=== PATIENT | female | born 1980 | race Caucasian/White ===

== ENCOUNTER 2016-10-16 07:35 | Day surgery (SDC) | payer MEDICAID ==
[~2016-10-16 07:35] MED LIST: Lactated Ringers 1,000 ML IV SCH; fentaNYL 100 MCG/2 ML SDV ONE
--- NOTE | 2016-10-16 08:24 | PCM.PREANE ---
Preanesthetic Assessment - Procedure Proposed Procedure: Placement of cervical cerclage - Anesthesia/Transfusion/Family Hx Anesthesia History: Prior Anesthesia Without Reaction (cervical cerclage under saddle block 2 yr ago) Other Type of Anesthesia Reaction Comment: Denies any known problem in past Family History of Anesthesia Reaction: No Transfusion History: No Prior Transfusion(s) Intubation History: Unknown - Review of Systems General: No Symptoms, Other (14 week ) Pulmonary: No Symptoms Cardiovascular: No Symptoms Gastrointestinal: No symptoms Neurological: No Symptoms Other: Reports: None - Physical Assessment NPO Status Date: 10/15/16 NPO Status Time: 23:00 O2 Sat by Pulse Oximetry: 97 Respiratory Rate: 16 Vital Signs: Last Vital Signs Temp 98.1 F 10/16/16 08:01 Pulse 67 10/16/16 08:01 Resp 16 10/16/16 08:01 BP 143/81 H 10/16/16 08:01 Pulse Ox 97 10/16/16 08:01 Height: 5 ft 5 in Weight: 265 lb ASA Class: 2 Mental Status: Alert & Oriented x3 Airway Class: Mallampati = 1 Dentition: Reports: Normal Dentition Thyro-Mental Finger Breadths: 4 Mouth Opening Finger Breadths: 3 ROM/Head Extension: Full Lungs: Clear to auscultation, Normal respiratory effort Cardiovascular: Regular Rate, Regular Rhythm, No Murmurs - Allergies Allergies/Adverse Reactions: Allergies Allergy/AdvReac Type Severity Reaction Status Date / Time Penicillins Allergy Hives Verified 08/17/14 16:29 - Blood Blood Available: No Product(s) Available: None - Anesthesia Plan Pre-Op Medication Ordered: None - Acknowledgements Anesthesia Type Planned: Spinal (saddle block) Pt an Appropriate Candidate for the Planned Anesthesia: Yes Alternatives and Risks of Anesthesia Discussed w Pt/Guardian: Yes Pt/Guardian Understands and Agrees with Anesthesia Plan: Yes PreAnesthesia Questionnaire - Past Health History Medical/Surgical History: Denies Medical/Surgical History 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: Reports: , Spontaneous Other OB/BYN History: 3 miscarriages Endocrine/Metabolic History: Reports: Obesity/BMI 30+ - Past Surgical History Head Surgeries/Procedures: Reports: None Female Surgical History: Reports: D&C Other Female Surgeries/Procedures: cervical cerclage in 2014 - SUBSTANCE USE Smoking Status *Q: Former Smoker Second Hand Smoke Exposure: No Days Per Week of Alcohol Use: 0 Number of Drinks Per Day: 0 Total Drinks Per Week: 0 Recreational Drug Use History: Yes - HOME MEDS Home Medications: Home Meds Acetaminophen [Tylenol Extra Strength] 2 tab PO ASDIRECTED PRN 10/11/16 [History ] - CURRENT (IN HOUSE) MEDS Current Meds: Current Medications Lactated Ringer's (Ringers, Lactated) 1,000 mls @ 125 mls/hr IV ASDIRECTED [facility] Last Admin: 10/16/16 08:02 Dose: 125 mls/hr Discontinued Medications Fentanyl (Sublimaze) Confirm Administered Dose 100 mcg .ROUTE .STK-MED ONE Stop: 10/16/16 07:32 Preanesthetic Assessment - ANESTHESIA/TRANSFUSION/FAMILY HX Anesthesia/Transfusion History: Prior Anesthesia Other Type of Anesthesia Reaction Comment: Denies any known problem in past Family History of Anesthesia Reaction: No Intubation History: Unknown - PHYSICAL ASSESSMENT O2 Sat by Pulse Oximetry: 97 RR: 16 Vital Signs: Last Vital Signs Temp 98.1 F 10/16/16 08:01 Pulse 67 10/16/16 08:01 Resp 16 10/16/16 08:01 BP 143/81 H 10/16/16 08:01 Pulse Ox 97 10/16/16 08:01 Height: 5 ft 5 in Weight: 265 lb NPO Status Date: 10/15/16 NPO Status Time: 23:00 - ALLERGIES Allergies/Adverse Reactions: Allergies Allergy/AdvReac Type Severity Reaction Status Date / Time Penicillins Allergy Hives Verified 08/17/14 16:29
[2016-10-16] MEDS ORDERED: Ketorolac 30 MG/ML SDV ONE (09:27)
--- NOTE | 2016-10-16 10:15 | PCM.OPNOTE ---
- General Post-Op/Procedure Note Date of Surgery/Procedure: 10/16/16 Operative Procedure(s): Prophylactic cervical cerclage, Marques's Findings: FHR 140's , preop. Long thick cervix, closed Pre Op Diagnosis: 1)14.1 weeks 2)History of Incompetent cervix Post-Op Diagnosis: Same Anesthesia Technique: Spinal Primary Surgeon: Luba Birch Pathology: None Fluid Replacement, Intraop: 1,500 EBL in mLs: 5 Complications: None Condition: Good
--- NOTE | 2016-10-16 11:24 | PCM.POSTAN ---
POST ANESTHESIA ASSESSMENT - MENTAL STATUS Mental Status: alert, oriented - RESPIRATORY Respiratory Status: respiratory rate WNL, airway patent - CARDIOVASCULAR CV Status: pulse rate WNL, blood pressure stable - GASTROINTESTINAL GI Status: no symptoms - POST OP HYDRATION Hydration Status: adequate & stable
--- NOTE | 2016-10-16 11:25 | PCM48HPAN ---
Post Anesthesia Note - EVALUATION WITHIN 48HRS OF ANESTHETIC Vital Signs in Normal Range: Yes Patient Participated in Evaluation: Yes Respiratory Function Stable: Yes Airway Patent: Yes Cardiovascular Function Stable: Yes Hydration Status Stable: Yes Pain Control Satisfactory: Yes Nausea and Vomiting Control Satisfactory: Yes Mental Status Recovered: Yes
[2016-10-16 12:36] VITALS: BP 114/76
--- NOTE | 2016-10-17 01:49 | OR ---
SURGEON: Luba Birch MD DATE OF PROCEDURE: 10/16/2016 PREOPERATIVE DIAGNOSES: 1. Intrauterine at 14 weeks and 1 day gestation. 2. History of cervical insufficiency. POSTOPERATIVE DIAGNOSES: 1. Intrauterine at 14 weeks and 1 day gestation. 2. History of cervical insufficiency. PROCEDURE: Mohan Cervical Cerclage. ANESTHESIA: Spinal. ESTIMATED BLOOD LOSS: 10 mL. COMPLICATIONS: None. DISPOSITION: Stable to recovery room. OPERATIVE FINDING: Cervix was long, thick, and closed. heart tracing 130 beats per minute preop. Postop heart tracing was 130s to 140 beats per minute BRIEF HISTORY: Margaret is G5, P0-2-2-2, who with a history of cervical insufficiency after having had 2 deliveries, the 1st one at 32 weeks and her last delivery in 2014, was at 29 weeks gestation, despite an ultrasound indicated emergency cerclage placed at 22 weeks gestation. She is currently 14 weeks and is a candidate for history indicated prophylactic cerclage placement. DESCRIPTION OF PROCEDURE: After satisfactory spinal anesthesia was established, the patient was placed in dorsal lithotomy position, prepped and draped in the usual sterile fashion for vaginal surgery. The bladder had been emptied with a straight catheter. Examination under anesthesia was performed with aforementioned findings. The patient was then placed in Trendelenburg position and a weighted speculum was placed in the vagina. Lateral wall vaginal Breisky retractors were used to visualize the cervix. Ring forceps was applied to the anterior and the posterior cervical lips and traction was applied downwards towards the vaginal introitus. Using #1 Prolene suture with a CT-1 needle, the Ist cerclage stitch was placed starting at 12 o'clock position at the junction of the cervix and the vagina. The Purse-string suture was placed around the cervix taking bites of the stroma. The suture was held with a hemostat. The second Purse-string suture was then placed a few millimeter above the first one in similar fashion and was held with the hemostat. This Ist suture was then tied down securely. Followed by the 2nd suture which was also tied down. Each suture was cut approximately 2-3 cm from the knots. All instruments were removed from the vagina. There was no rupture of membrane or any other complications noted during the procedure. The patient tolerated the procedure well and was taken to the recovery room in stable condition. ALBEROT / VIRIDIANA /[id number] BONNY
== END 2016-10-16 12:20 | disposition home or self-care (01) ==
LOC: MW.SDS 07:35
PROVIDERS: ATTEND Obstetrics & Gynecology
PROC: 0UVC7ZZ Restriction of Cervix, Via Natural or Artificial Opening (ICD-10-PCS; principal; 2016-10-16)
DX: N88.3 Incompetence of cervix uteri (principal); O09.291 Supervision of pregnancy with other poor reproductive or obstetric history, first trimester; F32.9 Major depressive disorder, single episode, unspecified; Z87.891 Personal history of nicotine dependence; Z98.890 Other specified postprocedural states; Z79.899 Other long term (current) drug therapy; Z88.0 Allergy status to penicillin
CPT/HCPCS: 36415; 59320; 85027; J1885; J3010; J7120; 00948

== ENCOUNTER 2017-03-26 10:12 | Inpatient (IN) | payer MEDICAID ==
[2017-03-26] MEDS: Lactated Ringers 1,000 ML IV SCH ×2 (11:01→12:22)
[2017-03-26] MEDS ORDERED: Lidocaine 1% 50 ML MDV ONE (11:11)
[2017-03-26] MEDS ORDERED: Lidocaine 1% 50 ML MDV INJECT PRN (11:28)
[2017-03-26] MEDS ORDERED: Nalbuphine 10 MG/1 ML Vial IVPUSH PRN (11:28)
[2017-03-26] MEDS ORDERED: Carboprost Tromethamine 250 MCG/1 ML Amp IM PRN (11:28)
[2017-03-26] MEDS ORDERED: Sodium Chloride 0.9% 10 ML Syringe FLUSH PRN (11:28)
[2017-03-26] MEDS ORDERED: Methylergonovine 0.2 MG/1 ML Amp IM PRN (11:28)
[2017-03-26] MEDS ORDERED: Butorphanol 1 MG/ML SDV IVPUSH PRN (11:28)
[2017-03-26] MEDS ORDERED: Water For Irrigation,Sterile 1,000 ML Container IRR PRN (11:28)
[2017-03-26] MEDS ORDERED: Misoprostol 200 MCG Tab PO PRN (11:28)
[2017-03-26] MEDS ORDERED: Sodium Chloride 0.9% 2.5 ML Syringe FLUSH PRN (11:28)
[2017-03-26] MEDS ORDERED: Oxytocin/Lactated Ringers 30 UNIT/500 ML BAG IV SCH (11:30)
[2017-03-26] MEDS ORDERED: Ropivacaine HCl/PF 0 ML ONE (11:30)
[2017-03-26] MEDS ORDERED: fentaNYL 100 MCG/2 ML SDV ONE ×2 (11:30→11:42)
[2017-03-26] MEDS ORDERED: Oxytocin/0.9 % Sodium Chloride 30 UNIT/500 ML BAG IV SCH (12:00)
[2017-03-26] MEDS ORDERED: oxyCODONE 5 MG Tab ONE (12:12)
[2017-03-26] MEDS ORDERED: Ibuprofen 800 MG Tab ONE (12:12)
[2017-03-26] MEDS ORDERED: Acetaminophen 500 MG Tab PO PRN (12:32)
[2017-03-26] MEDS ORDERED: Measles, Mumps & Rubella Vaccine 0.5 ML SDV SUBCUT ONE (12:32)
[2017-03-26] MEDS ORDERED: Ibuprofen 400 MG Tab PO PRN (12:32)
[2017-03-26] MEDS ORDERED: Benzocaine/Menthol 20%-0.5% Spray 78 GM Cannister TOP PRN (12:32)
[2017-03-26] MEDS ORDERED: Lanolin 100% Cream 7 GM Tube TOP PRN (12:32)
[2017-03-26] MEDS ORDERED: Bisacodyl 10 MG Supp RECTAL PRN (12:32)
[2017-03-26] MEDS ORDERED: Witch Hazel Medicated Pads 40/Jar TOP PRN (12:32)
[2017-03-26] MEDS ORDERED: Ibuprofen 800 MG Tab PO PRN (12:32)
[2017-03-26] MEDS: Acetaminophen 500 MG Tab PO PRN (13:42)
[2017-03-26] MEDS: oxyCODONE 5 MG Tab PO PRN ×2 (14:39→17:16)
[2017-03-26] MEDS: Docusate Sodium 100 MG Cap PO PRN (17:16)
[2017-03-27] MEDS: oxyCODONE 5 MG Tab PO PRN ×3 (00:13→15:34)
[2017-03-27] MEDS: Acetaminophen 500 MG Tab PO PRN ×3 (00:14→15:34)
--- NOTE | 2017-03-27 07:52 | PCM.PNPP ---
- General Info Date of Service: 03/27/17 Functional Status: Reports: Pain Controlled, Tolerating Diet, Ambulating, Urinating - Review of Systems General: Denies: Fever, Weakness, Chills HEENT: Denies: Headaches Pulmonary: Denies: Shortness of Breath, Cough Cardiovascular: Denies: Chest Pain, Palpitations, Dyspnea on Exertion Gastrointestinal: Denies: Abdominal Pain Genitourinary: Denies: Dysuria, Incontinence Psychiatric: Denies: Mood Lability, Anxiety - General Info Date of Service: 03/27/17 - Patient Data Vital Signs - Most Recent: Last Vital Signs Temp 36.5 C 03/27/17 06:30 Pulse 75 03/27/17 06:30 Resp 16 03/27/17 06:30 BP 130/63 03/27/17 06:30 Pulse Ox 96 03/27/17 06:30 Weight - Most Recent: 310 lb Lab Results - Last 24 Hours: Laboratory Results - last 24 hr 03/26/17 03/26/17 03/27/17 Range/Units 10:59 10:59 04:30 WBC 10.23 (4.0-11.0) K/uL RBC 4.16 L (4.30-5.90) M/uL Hgb 12.3 11.1 L (12.0-16.0) g/dL Hct 37.2 34.2 L (36.0-46.0) % MCV 89.4 (80.0-98.0) fL MCH 29.6 (27.0-32.0) pg MCHC 33.1 (31.0-37.0) g/dL RDW Std Deviation 43.3 (28.0-62.0) fl RDW Coeff of Salas 13 (11.0-15.0) % Plt Count 238 (150-400) K/uL MPV 11.30 (7.40-12.00) fL Nucleated RBC % 0.0 /100WBC Nucleated RBCs # 0 K/uL Blood Type O POSITIVE Antibody Screen NEGATIVE Med Orders - Current: Current Medications Acetaminophen (Tylenol Extra Strength) 500 mg PO Q4H PRN PRN Reason: Pain Acetaminophen (Tylenol Extra Strength) 1,000 mg PO Q4H PRN PRN Reason: Pain Last Admin: 03/27/17 00:14 Dose: 1,000 mg Benzocaine/Menthol (Dermoplast Pain Relief 20%-0.5% [place]) 78 gm TOP ASDIRECTED PRN PRN Reason: Perineal Comfort Measure Last Admin: 03/26/17 17:16 Dose: 1 can Bisacodyl (Dulcolax) 10 mg RECTAL .ONCE PRN PRN Reason: Constipation Docusate Sodium (Colace) 100 mg PO BID PRN PRN Reason: Constipation Last Admin: 03/26/17 17:16 Dose: 100 mg Emollient Ointment (Lansinoh Hpa) 0 gm TOP ASDIRECTED PRN PRN Reason: Sore Nipples Ibuprofen (Motrin) 400 mg PO Q4H PRN PRN Reason: Pain Ibuprofen (Motrin) 800 mg PO Q6H PRN PRN Reason: Pain Last Admin: 03/26/17 19:06 Dose: 800 mg Oxycodone HCl (Oxycodone) 5 mg PO Q2H PRN PRN Reason: Pain Last Admin: 03/27/17 00:13 Dose: 5 mg Witch Gila (Tucks) 1 pad TOP ASDIRECTED PRN PRN Reason: comfort care Last Admin: 03/26/17 17:16 Dose: 1 tub Discontinued Medications Butorphanol Tartrate (Stadol) 1 mg IVPUSH Q1H PRN PRN Reason: Pain Carboprost Tromethamine (Hemabate Ds) 250 mcg IM ASDIRECTED PRN PRN Reason: Post Hemorrhage Fentanyl (Sublimaze) Confirm Administered Dose 100 mcg .ROUTE .STK-MED ONE Stop: 03/26/17 11:31 Fentanyl (Sublimaze) Confirm Administered Dose 100 mcg .ROUTE .STK-MED ONE Stop: 03/26/17 11:43 Lactated Ringer's (Ringers, Lactated) 1,000 mls @ 150 mls/hr IV ASDIRECTED LINDSAY Last Admin: 03/26/17 12:22 Dose: 999 mls/hr Oxytocin/Lactated Ringer's (Pitocin In Lr 30 Units/500 Ml) 30 unit in 500 mls @ 999 mls/hr IV TITRATE LINDSAY PRN Reason: 999 MUNITS/MIN Stop: 03/26/17 12:01 Ropivacaine (Naropin 0.2%) Confirm Administered Dose 0 mls @ as directed .ROUTE .STK-MED ONE Stop: 03/26/17 11:31 Oxytocin/Sodium Chloride (Oxytocin 30 Unit/500 Ml-Ns) 30 unit in 500 mls @ 999 mls/hr IV TITRATE LINDSAY PRN Reason: 999 MUNITS/MIN Last Admin: 03/26/17 11:49 Dose: 999 munits/min, 999 mls/hr Ibuprofen (Motrin) Confirm Administered Dose 800 mg .ROUTE .STK-MED ONE Stop: 03/26/17 12:13 Last Admin: 03/26/17 12:18 Dose: 800 mg Lidocaine HCl (Xylocaine 1%) Confirm Administered Dose 50 ml .ROUTE .STK-MED ONE Stop: 03/26/17 11:12 Lidocaine HCl (Xylocaine 1%) 50 ml INJECT .ONCE PRN PRN Reason: Laceration repair Measles/Mumps/Rubella Vaccine Live (M-M-R Ii Vaccine) 0.5 ml SUBCUT .ONCE ONE Stop: 03/26/17 12:33 Methylergonovine Maleate (Methergine) 0.2 mg IM ASDIRECTED PRN PRN Reason: Post Hemorrhage Misoprostol (Cytotec) 200 mcg PO .ONCE PRN PRN Reason: Post Hemorrhage Nalbuphine HCl (Nubain) 10 mg IVPUSH Q1H PRN PRN Reason: Pain (severe 7-10) Oxycodone HCl (Oxycodone) Confirm Administered Dose 5 mg .ROUTE .STK-MED ONE Stop: 03/26/17 12:13 Last Admin: 03/26/17 12:18 Dose: 5 mg Sodium Chloride (Saline Flush) 10 ml FLUSH ASDIRECTED PRN PRN Reason: Keep Vein Open Sodium Chloride (Saline Flush) 2.5 ml FLUSH ASDIRECTED PRN PRN Reason: Keep Vein Open Sterile Water (Sterile Water For Irrigation) 1,000 ml IRR ASDIRECTED PRN PRN Reason: delivery - Interaction Infant Disposition, : to Nursery Infant Interaction: Not Applicable Infant Feeding: Attempted ; Nursed Fair/Poor, Bottle Fed , Encouraged to Breastfeed (Patient will continue to try with breast feeding) Support Person: Significant Other - Recovery Exam Fundal Tone: Firm Fundal Level: 1 Fingerbreadths Below Umbilicus Fundal Placement: Midline Lochia Amount: Scant Lochia Color: Rubra/Red Perineum Description: Intact, Minimal Bruising/Swelling Episiotomy/Laceration: None Bladder Status: Voiding Urinary Elimination: Voided - Exam General: Alert, Oriented HEENT: Pupils Equal Lungs: Clear to Auscultation, Normal Respiratory Effort Cardiovascular: Regular Rate, Regular Rhythm GI/Abdominal Exam: Non-Tender Extremities: Non-Tender, Pedal Edema Psy/Mental Status: Alert, Normal Affect, Normal Mood - Problem List & Annotations (1) Vaginal delivery SNOMED Code(s): 063769024 Code(s): O80 - ENCOUNTER FOR FULL-TERM UNCOMPLICATED DELIVERY Status: Acute Current Visit: Yes - Problem List Review Problem List Initiated/Reviewed/Updated: Yes - My Orders Last 24 Hours: My Active Orders 03/26/17 10:28 Non Stress Test [RC] PER UNIT ROUTINE Up ad Pam [RC] ASDIRECTED Vaginal Exam [RC] Click to Edit Vital Signs [RC] PER UNIT ROUTINE 03/26/17 11:28 Heart Tones [RC] CONTINUOUS Non Stress Test [RC] PER UNIT ROUTINE May Shower [RC] ASDIRECTED Notify Provider [RC] PRN Up ad Pam [RC] ASDIRECTED Vaginal Exam [RC] PRN Vital Signs [RC] PER UNIT ROUTINE 03/26/17 12:32 Patient Status [ADT] Routine May Shower [RC] ASDIRECTED Up ad Pam [RC] ASDIRECTED Vital Signs [RC] PER UNIT ROUTINE Acetaminophen [Tylenol Extra Strength] 1,000 mg PO Q4H PRN Acetaminophen [Tylenol Extra Strength] 500 mg PO Q4H PRN Benzocaine/Menthol [Dermoplast Pain Relief 20%-0.5% [place]] 78 gm TOP ASDIRECTED PRN Bisacodyl [Dulcolax] 10 mg RECTAL .ONCE PRN Docusate Sodium [Colace] 100 mg PO BID PRN Ibuprofen [Motrin] 400 mg PO Q4H PRN Ibuprofen [Motrin] 800 mg PO Q6H PRN Lanolin [Lansinoh HPA] See Dose Instructions TOP ASDIRECTED PRN Witch Gila [Tucks] 1 pad TOP ASDIRECTED PRN oxyCODONE 5 mg PO Q2H PRN Assess Lochia [WOMSER] Per Unit Routine Assess Uterine Involution [WOMSER] Per Unit Routine Breast Pump [WOMSER] Per Unit Routine Peripheral IV Discontinue [OM.PC] Routine Resuscitation Status Routine 03/26/17 12:33 Perineal Care [OM.PC] Per Unit Routine 03/26/17 Dinner Regular Diet [DIET] - Assessment Assessment:: PPD#1 s/p uncomplicated at 37 weeks Stable and afebrile - Plan Plan:: Discharge instructions reviewed Nothing in the vagina for 6 weeks Bleeding and infection precautions reviewed Continue PNV Follow up in 6 weeks in the clinics
[2017-03-27] MEDS: Docusate Sodium 100 MG Cap PO PRN (09:03)
--- NOTE | 2017-03-27 10:39 | OR ---
SURGEON: Luba Birch MD DATE OF PROCEDURE: 03/26/2017 PREOPERATIVE DIAGNOSES: 1. Term at 37 weeks and 2 days. 2. Spontaneous labor. POSTOPERATIVE DIAGNOSES: 1. Term at 37 weeks and 2 days. 2. Precipitate labor. 3. Delivered. PROCEDURE: Spontaneous vaginal delivery. ANESTHESIA: None. ESTIMATED BLOOD LOSS: 100 mL. COMPLICATIONS: None. DISPOSITION: Mother and baby stable in labor and delivery room, bonding. FINDINGS: Female , weight pending at dictation, score 6 and 8 at 1 and 5 minutes respectively. Grossly normal placenta with three-vessel cord. Intact perineum. BRIEF HISTORY: Margaret is 36-year-old, G6, P0-2-3-2, who presented at 37 weeks and 2 days gestation to Labor and delivery, 24 hours after she had an uneventful removal of prophylactic cerclage in the office, complaining of regular contractions since about an hour prior to presentation, associated with increasing vaginal spotting and possible leakage of small amount of fluid. She reported active fetus. On presentation to labor and delivery at approximately 1023 hours, she was placed on the monitor , category 1 strip and on VE she was 3 to 4 cm dilated, 80% effaced, and station -1. Justus every 1 to 3 minutes. She was admitted with routine intrapartum labs drawn. The patient progressed rather rapidly, and within 5 minutes of presentation, she had a spontaneous rupture of membranes with clear amniotic fluid noted. She was re-examined then and was already 6 to 7 cm dilated. She then progressed to full dilatation within 1 hour and 15 mins of admission and commenced active pushing. She was set up for delivery in modified dorsolithotomy position. The heart tracing remained category 1. PROCEDURE DETAILS: She had a spontaneous vaginal delivery of a live female in direct occipital anterior position, no nuchal cord, copious amount of clear amniotic fluid at delivery. Anterior and the posterior shoulders and the rest of the baby were delivered without difficulty. Infant was delivered onto the maternal abdomen. Delayed cord clamping was performed, and the cord was subsequently cut by the father of the baby. With delivery of the infant, oxytocin infusion was commenced for active management of third stage of labor. Cord blood and gas samples were obtained. Placenta was delivered by controlled cord traction and appeared to be complete and intact. Examination of the perineum revealed no lacerations. Uterine massage was performed. The uterus was found to be well contracted below the umbilicus. The patient tolerated the procedure well. Sponge, instrument, and needle counts were correct at the end of the delivery. ALBERTO / VIRIDIANA /[id number] MTDD
[2017-03-27 11:43] VITALS: BP 138/82
[2017-03-27] MEDS ORDERED: FLU Vacc QS 2017-18 (36mos UP)/PF 60 MCG/0.5 ML Syringe IM ONE (15:50)
== END 2017-03-27 16:25 | disposition home or self-care (01) | DRG 775 ==
LOC: MW.OBCHECK 10:12 → MW.OB 10:15 → MW.OBCHECK 10:43 → MW.OB 10:44 → OBSVTOIN 11:49 → MW.OB 18:18
PROVIDERS: ADMIT Obstetrics & Gynecology; ATTEND Obstetrics & Gynecology
PROC: 10E0XZZ Delivery of Products of Conception, External Approach (ICD-10-PCS; principal; 2017-03-26)
DX: O80 Encounter for full-term uncomplicated delivery (principal); Z3A.37 37 weeks gestation of pregnancy; Z37.0 Single live birth
CPT/HCPCS: 36415; 59025; 85014; 85018; 85027; 86850; 86900; 86901; 90471; 90688; 90707; A9270-GY; J2590; J7120

== ENCOUNTER 2017-09-13 21:35 | Emergency (ER) | payer MEDICAID ==
--- NOTE | 2017-09-13 21:55 | EDM.PDOC ---
ED HPI GENERAL MEDICAL PROBLEM - General Chief Complaint: General Stated Complaint: BODY ACHES Time Seen by Provider: 09/13/17 21:49 - History of Present Illness INITIAL COMMENTS - FREE TEXT/NARRATIVE: HISTORY AND PHYSICAL: History of present illness: The patient is a 37-year-old female with no stated medical problems who presents with 4 days of body aches feeling rundown and having some slight cough. She says she has neck ache upper back pain and diffuse body aches but no specific head ache. She has not had a sore throat. She is eating and drinking normally and denies as she has an IUD. Has no lower back pain. Patient states she did get her flu shot this year Review of systems: As per history of present illness and below otherwise all systems reviewed and negative. Past medical history: As per history of present illness and as reviewed below otherwise noncontributory. Surgical history: As per history of present illness and as reviewed below otherwise noncontributory. Social history: No reported history of drug or alcohol abuse. Family history: As per history of present illness and as reviewed below otherwise noncontributory. Physical exam: Gen.: Overweight female who is nontoxic and has a dry cough on my evaluation but is not nasal sounding and vital signs of been reviewed by me HEENT: Atraumatic, normocephalic, pupils reactive, negative for conjunctival pallor or scleral icterus, mucous membranes moist, throat clear, neck supple, nontender, trachea midline. No cervical adenopathy or nuchal rigidity Lungs: Clear to auscultation, breath sounds equal bilaterally, chest nontender. No wheezing or stridor Heart: S1S2, regular rate and rhythm no overt murmurs Abdomen: Soft, nondistended, nontender. NABS Pelvis: Stable nontender. Genitourinary: Deferred. Rectal: Deferred. Extremities: Atraumatic, negative for cords or calf pain. Neurovascular unremarkable. Neuro: Awake, alert, oriented. Cranial nerves II through XII unremarkable. Cerebellum unremarkable. Motor and sensory unremarkable throughout. Exam nonfocal. Diagnostics: Influenza rapid strep Therapeutics: [] Impression: Viral illness Definitive disposition and diagnosis as appropriate pending reevaluation and review of above. 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 Other OB/BYN History: 3 miscarriages Endocrine/Metabolic History: Reports: Obesity/BMI 30+ - Past Surgical History Head Surgeries/Procedures: Reports: None Female Surgical History: Reports: D&C Other Female Surgeries/Procedures: cervical cerclage in 2014 Social & Family History - Tobacco Use Smoking Status *Q: Never Smoker Years of Tobacco use: 11 Used Tobacco, but Quit: Yes Month Tobacco Last Used: 04/20 Second Hand Smoke Exposure: No - Alcohol Use Days Per Week of Alcohol Use: 0 Number of Drinks Per Day: 0 Total Drinks Per Week: 0 - Recreational Drug Use Recreational Drug Use: No Drug Use in Last 12 Months: No ED ROS GENERAL - Review of Systems Review Of Systems: ROS reveals no pertinent complaints other than HPI. ED EXAM, GENERAL - Physical Exam Exam: See Below (See dictation) Course - Vital Signs Last Recorded V/S: Last Vital Signs Temp 36.6 C 09/13/17 21:57 Pulse 102 H 09/13/17 21:57 Resp 18 09/13/17 21:57 BP 145/101 H 09/13/17 21:57 Pulse Ox 94 L 09/13/17 21:57 - Orders/Labs/Meds Orders: Active Orders 24 hr Category Date Time Status CULTURE STREP A CONFIRMATION [RM] Stat Lab 09/13/17 22:04 Results STREP SCRN A RAPID W CULT CONF [RM] Stat Lab 09/13/17 22:04 Results Departure - Departure Time of Disposition: 22:40 Disposition: Home, Self-Care 01 Condition: Good Clinical Impression: Viral illness - Discharge Information Referrals: Maritza Del Cid DO [Primary Care Provider] - Forms: ED Department Discharge Additional Instructions: The following information is given to patients seen in the emergency department who are being discharged to home. This information is to outline your options for follow-up care. We provide all patients seen in our emergency department with a follow-up referral. The need for follow-up, as well as the timing and circumstances, are variable depending upon the specifics of your emergency department visit. If you don't have a primary care physician on staff, we will provide you with a referral. We always advise you to contact your personal physician following an emergency department visit to inform them of the circumstance of the visit and for follow-up with them and/or the need for any referrals to a consulting specialist. The emergency department will also refer you to a specialist when appropriate. This referral assures that you have the opportunity for followup care with a specialist. All of these measure are taken in an effort to provide you with optimal care, which includes your followup. Under all circumstances we always encourage you to contact your private physician who remains a resource for coordinating your care. When calling for followup care, please make the office aware that this follow-up is from your recent emergency room visit. If for any reason you are refused follow-up, please contact the [facility] emergency department at and ask to speak to the emergency department charge nurse. [address] [place] [address] [facility] Primary care- Internal Medicine and Family [address] [address] Push hydration and use any [id number] medications that are appropriate for your symptoms as needed and as you choose. Please call and follow-up with a provider at [facility] or one of our providers in the next few days for reevaluation and further care. Return to ER as needed and as discussed. Rest as much as possible. - My Orders Last 24 Hours: My Active Orders 09/13/17 22:04 CULTURE STREP A CONFIRMATION [RM] Stat STREP SCRN A RAPID W CULT CONF [] Stat - Assessment/Plan Last 24 Hours: My Active Orders 09/13/17 22:04 CULTURE STREP A CONFIRMATION [RM] Stat STREP SCRN A RAPID W CULT CONF [] Stat
[2017-09-13 23:06] VITALS: BP 159/108
== END 2017-09-13 22:50 | disposition home or self-care (01) ==
LOC: MW.ED 21:35
DX: B34.9 Viral infection, unspecified (principal); Z88.0 Allergy status to penicillin; Z87.891 Personal history of nicotine dependence
CPT/HCPCS: 87081; 87804; 87880; 99282; 99283

== ENCOUNTER 2020-11-04 21:05 | Emergency (ER) | payer MEDICAID ==
[2020-11-04] MEDS ORDERED: Ketorolac 60 MG/2 ML SDV IM ONE (21:34)
--- NOTE | 2020-11-04 21:57 | EDM.PDOC ---
ED HPI GENERAL MEDICAL PROBLEM - General Chief Complaint: Lower Extremity Injury/Pain Stated Complaint: LT FOOT INJURY Time Seen by Provider: 11/04/20 21:28 Source of Information: Reports: Patient History Limitations: Reports: No Limitations - History of Present Illness INITIAL COMMENTS - FREE TEXT/NARRATIVE: HISTORY AND PHYSICAL: History of present illness: The patient is a 40-year-old female who presents to the emergency department with complaints of left dorsal foot pain. The patient was doing to catch her mother's dog and upon going down the stairs missed a step and hyperextended her foot under. She has no wounds to the area. She states she had been walking on it for most of the day but the pain became unbearable. She did not take any [id number] medications for the pain. Patient denies any fever, chills, headache, change in vision, syncope or near syncope. Denies any chest pain, back pain, shortness of breath or cough. Denies any abdominal pain, nausea, vomiting, diarrhea, constipation or dysuria. Has not noted any blood in urine or stool. Patient has been eating and drinking appropriately. Review of systems: As per history of present illness and below otherwise all systems reviewed and negative. Past medical history: As per history of present illness and as reviewed below otherwise noncontributory. Surgical history: As per history of present illness and as reviewed below otherwise noncontributory. Social history: See social history for further information Family history: As per history of present illness and as reviewed below otherwise noncontributory. Physical exam: General: Well developed and well nourished. Alert and orientated x 3. Nontoxic in appearance and in no acute distress. Vital signs are stable and have been re viewed by me. Nursing notes were reviewed. HEENT: Atraumatic, normocephalic, pupils equal and reactive bilaterally, negative for conjunctival pallor or scleral icterus, mucous membranes moist, TMs normal bilaterally, throat clear, neck supple, nontender, trachea midline. No drooling or trismus noted. No meningeal signs. No hot potato voice noted. Lungs: Clear to auscultation bilaterally. No wheezes, rales, or rhonchi. Chest nontender. Normal work of breathing, no accessory muscles used. Heart: S1S2, regular rate and rhythm without overt murmur, gallops, or rubs. No JVD. No peripheral edema Abdomen: Soft, nondistended, nontender. Normoactive bowel sounds. Negative for masses or costovertebral tenderness. Skin: Intact, warm, dry. No lesions or rashes noted. Hematologic: No petechiae or purpra. Mucosa appropriate color and normal nail bed color and refill. Extremities: Left dorsum of separator tender to touch. No obvious swelling. Moves all other extremities per self without difficulty or deficits, negative for cords or calf pain. Neurovascular unremarkable. Neuro: Awake, alert, oriented. Cranial nerves II through XII unremarkable. Cerebellum unremarkable. Motor and sensory unremarkable throughout. Exam nonfocal. Psychiatric: Mood and affect are appropriate. Normal thought process. Answering questions appropriately. Notes: *This patient was seen and evaluated during the 2019 SARS-CoV-2 novel coronavirus pandemic period. Community viral transmission is ongoing at time of this encounter and the emergency department is operating under pandemic response procedures. After discussion and examination the patient is agreeable to a left foot x-ray and Toradol IM injection for pain control. The patient's x-rays are negative. I will place the patient in a air splint left foot for comfort for stabilization for 5 days. The patient can take NSAIDs for pain control. I have discussed the plan with the patient and she is agreeable to discharge. I have talked with the patient about today's findings, in addition to providing specific details for plan of care. Reassessment at the time of disposition demonstrates that the patient is in no acute distress. The patient is stable for discharge, counseling was provided and we discussed in great detail signs and symptoms that would prompt them to return to the Emergency Department. Medication, follow up and supportive care measures were reviewed and discussed. Voices understanding and is agreeable to plan of care. Denies any further questions or concerns at this time. Diagnostics: Foot x-ray Therapeutics: 60 mg IM Impression: Foot sprain Plan: 1. You were evaluated today on an emergent basis. Your left foot pain was evaluated with an x-ray which was negative. I will put you in a air splint for 5 to 7 days. You can use ibuprofen 600 mg every 8 hours for pain. I would use it around the clock for the next 3 to 4 days. If after 7 days you are still having pain would follow-up with your primary care provider for possible physical therapy. 2. You can alternate Tylenol and ibuprofen as needed for pain and fever management. 3. We encourage you to follow up with your primary care provider and/or recommended specialist in the next few days for re-evaluation and further care/management. 4. If your symptoms should worsen, new symptoms develop or any of the signs and symptoms we discussed should arise please return to the emergency room or call 911 (if needed). Definitive disposition and diagnosis as appropriate pending reevaluation and review of above. 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: , 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 IN MACHINE OPERATOR History: 3 miscarriages Musculoskeletal History: Reports: None Neurological History: Reports: None Psychiatric History: Reports: None Endocrine/Metabolic History: Reports: Obesity/BMI 30+ Hematologic History: Reports: None Dermatologic History: Reports: None - Infectious Disease History Infectious Disease History: Reports: Chicken Pox - Past Surgical History Head Surgeries/Procedures: Reports: None Female Surgical History: Reports: D&C Other Female Surgeries/Procedures: cervical cerclage in 2014 Social & Family History - Family History Family Medical History: No Pertinent Family History Review of Systems - Review of Systems Review Of Systems: Comprehensive ROS is negative, except as noted in HPI. ED EXAM, GENERAL - Physical Exam Exam: See Below (See dictation) Course - Vital Signs Last Recorded V/S: Last Vital Signs Temp 98.2 F 11/04/20 21:49 Pulse Resp 18 11/04/20 21:49 BP 181/92 H 11/04/20 21:49 Pulse Ox 97 11/04/20 21:49 - Orders/Labs/Meds Orders: Active Orders 24 hr Category Date Time Status DME for Discharge [COMM] Stat Oth 11/04/20 21:57 Ordered Meds: Medications Discontinued Medications Generic Name Dose Route Start Last Admin Trade Name Freq PRN Reason Stop Dose Admin Ketorolac Tromethamine 60 mg 11/04/20 21:34 11/04/20 22:12 Ketorolac 60 Mg/2 Ml Sdv IM 11/04/20 21:35 60 mg ONETIME ONE Administration Departure - Departure Time of Disposition: 22:02 Disposition: Home, Self-Care 01 Condition: Good Clinical Impression: Foot sprain Qualifiers: Encounter type: initial encounter Laterality: left Qualified Code(s): S93.602A - Unspecified sprain of left foot, initial encounter - Discharge Information *PRESCRIPTION DRUG MONITORING PROGRAM REVIEWED*: Not Applicable *COPY OF PRESCRIPTION DRUG MONITORING REPORT IN PATIENT KATIE: Not Applicable Instructions: Foot Sprain Referrals: Maritza Del Cid DO [Primary Care Provider] - Forms: ED Department Discharge Additional Instructions: The following information is given to patients seen in the emergency department who are being discharged to home. This information is to outline your options for follow-up care. We provide all patients seen in our emergency department with a follow-up referral. The need for follow-up, as well as the timing and circumstances, are variable depending upon the specifics of your emergency department visit. If you don't have a primary care physician on staff, we will provide you with a referral. We always advise you to contact your personal physician following an emergency department visit to inform them of the circumstance of the visit and for follow-up with them and/or the need for any referrals to a consulting specialist. The emergency department will also refer you to a specialist when appropriate. This referral assures that you have the opportunity for follow-up care with a specialist. All of these measure are taken in an effort to provide you with optimal care, which includes your follow-up. Under all circumstances we always encourage you to contact your private phys ician who remains a resource for coordinating your care. When calling for follow-up care, please make the office aware that this follow-up is from your recent emergency room visit. If for any reason you are refused follow-up, please contact the [facility] Emergency Department at and asked to speak to the emergency department charge nurse. [facility] [address] [place] [id number] [facility] [address] [place] [address] Plan: 1. You were evaluated today on an emergent basis. Your left foot pain was evaluated with an x-ray which was negative. I will put you in a air splint for 5 to 7 days. You can use ibuprofen 600 mg every 8 hours for pain. I would use it around the clock for the next 3 to 4 days. If after 7 days you are still having pain would follow-up with your primary care provider for possible physical therapy. 2. You can alternate Tylenol and ibuprofen as needed for pain and fever management. 3. We encourage you to follow up with your primary care provider and/or recommended specialist in the next few days for re-evaluation and further care/management. 4. If your symptoms should worsen, new symptoms develop or any of the signs and symptoms we discussed should arise please return to the emergency room or call 911 (if needed). Sepsis Event Note (ED) - Focused Exam Vital Signs: Vital Signs Temp Resp BP Pulse Ox 11/04/20 21:49 98.2 F 18 181/92 H 97 - My Orders Last 24 Hours: My Active Orders 11/04/20 21:57 DME for Discharge [COMM] Stat - Assessment/Plan Last 24 Hours: My Active Orders 11/04/20 21:57 DME for Discharge [COMM] Stat
--- NOTE | 2020-11-04 22:21 | CR ---
3 VIEWS left ankle INDICATION: Injury. IMPRESSION: No visualized fracture. Alignments anatomic. Joint spaces unremarkable. Dictated by Cal Salinas MD @ 11/04/2020 10:19:[address] Cal Salinas @ Nov 04 2020 10:19PM
--- NOTE | 2020-11-04 22:23 | CR ---
2 view left foot. INDICATION: Injury. IMPRESSION: No visualized fracture. Alignments anatomic. No additional osseous lesion. Dictated by Cal Salinas MD @ 11/04/2020 10:20:[address] Cal Salinas @ Nov 04 2020 10:20PM
[2020-11-04 23:23] VITALS: BP 154/89; PULSE 87
== END 2020-11-04 23:24 | disposition home or self-care (01) ==
LOC: MW.ED 21:05
DX: S93.602A Unspecified sprain of left foot, initial encounter (principal); E66.9 Obesity, unspecified; Z88.0 Allergy status to penicillin; Z68.41 Body mass index [BMI] 40.0-44.9, adult; X50.1XXA Overexertion from prolonged static or awkward postures, initial encounter
CPT/HCPCS: 73610; 73620; 96372; 99283; J1885

== ENCOUNTER 2022-09-02 01:40 | Emergency (ER) | payer MEDICAID ==
[2022-09-02] MEDS ORDERED: Lisinopril 10 MG Tab PO ONE (01:59)
[2022-09-02 02:26] VITALS: BP 174/123; PULSE 88
== END 2022-09-02 02:24 | disposition home or self-care (01) ==
LOC: MW.ED 01:40
DX: I10 Essential (primary) hypertension (principal); E66.9 Obesity, unspecified; Z68.39 Body mass index [BMI] 39.0-39.9, adult; Z88.0 Allergy status to penicillin; Z79.899 Other long term (current) drug therapy
CPT/HCPCS: 99282; A9270

== ENCOUNTER 2022-09-02 12:09 | Emergency (ER) | payer MEDICAID ==
[2022-09-02] MEDS ORDERED: hydrALAZINE 25 MG Tab PO STA (12:34)
[2022-09-02] MEDS ORDERED: Lisinopril 10 MG Tab PO STA (12:39)
[2022-09-02 13:03] VITALS: BP 155/100; PULSE 74
== END 2022-09-02 13:07 ==
LOC: MW.ED 12:09
DX: I10 Essential (primary) hypertension (principal); E66.9 Obesity, unspecified; Z68.39 Body mass index [BMI] 39.0-39.9, adult; Z88.0 Allergy status to penicillin; Z79.899 Other long term (current) drug therapy
CPT/HCPCS: 93005; 99284; A9270; 93010; 99283

== ENCOUNTER 2022-09-17 18:51 | Emergency (ER) | payer MEDICAID ==
[2022-09-17 22:22] LABS: CARBON DIOXIDE,CO2 27.1 mmol/L (21.0-32.0); POTASSIUM,K 3.8 mmol/L (3.5-5.1)
[2022-09-17] MEDS ORDERED: LORazepam 2 MG/ML SDV IVPUSH ONE (23:21)
[2022-09-17] MEDS ORDERED: Labetalol 100 MG/20 ML MDV IVPUSH ONE (23:21)
[2022-09-18 03:11] VITALS: BP 137/55; PULSE 90
== END 2022-09-18 03:10 | disposition left against medical advice (07) ==
LOC: MW.ED 18:51
DX: R07.89 Other chest pain (principal); I10 Essential (primary) hypertension; E66.9 Obesity, unspecified; Z68.41 Body mass index [BMI] 40.0-44.9, adult; Z88.0 Allergy status to penicillin; Z79.899 Other long term (current) drug therapy
CPT/HCPCS: 36415; 71046; 80053; 84484; 85025; 85379; 93005; 96374; 96375; 99285; J2060; J3490; 93010; 99284

== ENCOUNTER 2024-10-17 19:32 | Emergency (ER) | payer MEDICAID ==
[2024-10-17] MEDS: Tetracaine HCl/PF 0.5% 4 ML Bottle EYEBOTH ONE (20:29)
[2024-10-17] MEDS: Fluorescein 1 MG Ophth Strip EYELF ONE (20:29)
[2024-10-17] MEDS: Erythromycin Base 0.5% Ophth Oint 1 GM Tube EYERT ONE (20:47)
[2024-10-17] MEDS: Lisinopril/Hydrochlorothiazide 10-12.5 MG Tab PO ONE (21:08)
[2024-10-17 21:44] VITALS: BP 194/98; PULSE 88
== END 2024-10-17 21:15 | disposition home or self-care (01) ==
LOC: MW.ED 19:32
DX: S05.01XA Injury of conjunctiva and corneal abrasion without foreign body, right eye, initial encounter (principal); I10 Essential (primary) hypertension; F17.210 Nicotine dependence, cigarettes, uncomplicated; Z88.0 Allergy status to penicillin; Z79.899 Other long term (current) drug therapy; Z91.148 Patient's other noncompliance with medication regimen for other reason; X58.XXXA Exposure to other specified factors, initial encounter; Y93.89 Activity, other specified
CPT/HCPCS: 99283; A9270; J3490